=== PATIENT | female | born 1980 | race African-American/Black ===

== ENCOUNTER 2022-07-06 15:23 | Inpatient (IN) | payer BC ==
[2022-07-06 15:48] VITALS: BMI 17.2
[2022-07-06] MEDS ORDERED: guaiFENesin 600 MG TABLET.ER (FP) PO PRN (16:57)
[2022-07-06] MEDS ORDERED: BENZOCAINE/MENTHOL (CHLORASEPTIC ) LOZENGE MM PRN (16:57)
[2022-07-06] MEDS ORDERED: POLYETHYLENE GLYCOL (HEALTHYLAX) 3350 17 GM PACKET PO PRN (16:57)
[2022-07-06] MEDS ORDERED: NICOTINE 10 MG CARTRIDGE (INHALER) IH PRN (16:57)
[2022-07-06] MEDS ORDERED: hydrOXYzine PAMOATE 25 MG CAPSULE (FP) PO PRN (16:57)
[2022-07-06] MEDS ORDERED: ONDANSETRON *ODT* 4 MG TABLET SL PRN (16:57)
[2022-07-06] MEDS ORDERED: BENZONATATE 200 MG CAPSULE PO PRN (16:57)
[2022-07-06] MEDS ORDERED: BISMUTH SUBSALICYLATE 524 MG/30 ML PO PRN (16:57)
[2022-07-06] MEDS ORDERED: MAGNESIUM HYDROX 2400MG/30ML ORAL SUSPENSION 30 ML CUP PO PRN (16:57)
[2022-07-06] MEDS ORDERED: IBUPROFEN 600 MG TABLET (FP) PO PRN (16:57)
[2022-07-06] MEDS ORDERED: LOPERAMIDE HCL 2 MG CAPSULE PO PRN (16:57)
[2022-07-06] MEDS ORDERED: DICYCLOMINE HCL 10 MG CAPSULE PO PRN (16:57)
[2022-07-06] MEDS ORDERED: NALOXONE HCL (KLOXXADO) 8 MG SPRAY NS PRN (16:57)
[2022-07-06] MEDS ORDERED: MAG HYDROX/AL HYDROX/SIMETH 30 ML UNIT-DOSE CUP PO PRN (16:57)
[2022-07-06] MEDS ORDERED: NALOXONE HCL 0.4 MG/ML VIAL IM PRN (16:57)
[2022-07-06] MEDS ORDERED: IBUPROFEN 400 MG TABLET (FP) PO PRN (16:57)
[2022-07-06] MEDS ORDERED: METHOCARBAMOL 500 MG TABLET PO PRN (16:57)
[2022-07-06] MEDS ORDERED: ACETAMINOPHEN 325 MG TABLET (FP) PO PRN (16:57)
[2022-07-06] MEDS: THIAMINE HCL 100 MG TABLET (FP) PO SCH (23:03)
[2022-07-06] MEDS: MELATONIN 5 MG TABLETS PO SCH (23:03)
[2022-07-07] MEDS: PRENATAL VITAMINS W/ FOLIC ACID TABLET (FP) PO SCH (10:33)
[2022-07-07] MEDS: OLANZapine 5 MG TABLET PO SCH ×2 (10:33→22:43)
[2022-07-07 11:36] LABS: MCH 29.7 pg (25.7-33.7); MCHC 33.4 g/dl (32.0-36.0); MEAN CELL VOLUME 88.8 fl (80-96); PLATELET COUNT 312 10^3/uL (134-434); RBC 4.05 M/mm3 (3.60-5.2); RDW 17.8 % (11.6-15.6)
[2022-07-07 11:49] LABS: BLOOD UREA NITROGEN 14.1 mg/dL (7-18)
[2022-07-07 11:50] LABS: CREATININE 0.9 mg/dL (0.55-1.3)
[2022-07-07 11:51] LABS: BILIRUBIN,TOTAL 0.2 mg/dL (0.2-1); CALCIUM 9.1 mg/dL (8.5-10.1); TOT PROT 6.2 g/dl (6.4-8.2)
[2022-07-07] MEDS: THIAMINE HCL 100 MG TABLET (FP) PO SCH (22:43)
[2022-07-07] MEDS: MELATONIN 5 MG TABLETS PO SCH (22:43)
[2022-07-08] MEDS: OLANZapine 5 MG TABLET PO SCH ×2 (10:03→22:21)
[2022-07-08] MEDS: PRENATAL VITAMINS W/ FOLIC ACID TABLET (FP) PO SCH (10:03)
[2022-07-08] MEDS ORDERED: TRIMETHOBENZAMIDE HCL 200MG/2ML INJ IM ONE (11:00)
[2022-07-08] MEDS: LORazepam 1 MG TABLET PO SCH ×3 (11:04→22:22)
[2022-07-08] MEDS: DOXYCYCLINE HYCLATE 100 MG CAPSULE PO SCH (18:21)
[2022-07-08] MEDS: THIAMINE HCL 100 MG TABLET (FP) PO SCH (22:21)
[2022-07-08] MEDS: MELATONIN 5 MG TABLETS PO SCH (22:21)
[2022-07-08 23:51] LABS: EPI CELLS >36 /uL (0-25.1); HYALINE CASTS 32 /uL (0-3.1); PH,URINE 5.5 (5.0-8.0); URINE APPEARANCE TURBID; URINE BACTERIA >9,000 /uL (0-1359); URINE BILIRUBIN NEGATIVE (NEGATIVE); URINE COLOR DK YELLOW; URINE GLUCOSE (UA) NEGATIVE (NEGATIVE); URINE KETONE NEGATIVE (NEGATIVE); URINE LEUK ESTERASE 1+ (NEGATIVE); URINE NITRITE POSITIVE (NEGATIVE); URINE PROTEIN TRACE (NEGATIVE); URINE UROBILINOGEN 0.2 mg/dL (0.2-1.0); URINE WBC 453 /uL (0-25.8)
[2022-07-09] MEDS: LORazepam 1 MG TABLET PO SCH (05:52)
[2022-07-09 08:55] VITALS: BP 123/79; PULSE 92; RESP 18; TEMP 97.7
[2022-07-09] MEDS: PRENATAL VITAMINS W/ FOLIC ACID TABLET (FP) PO SCH (09:41)
[2022-07-09] MEDS: DOXYCYCLINE HYCLATE 100 MG CAPSULE PO SCH (09:41)
[2022-07-09] MEDS: OLANZapine 5 MG TABLET PO SCH (09:41)
[2022-07-09 11:07] LABS: URINE CRYSTALS NONE SEEN /hpf; URINE RBC 30.6 /uL (0-23.9)
[2022-07-10] MEDS ORDERED: LORazepam 1 MG TABLET PO SCH (05:00)
[2022-07-11] MEDS ORDERED: LORazepam 0.5 MG TABLET PO PRN
[2022-07-11] MEDS ORDERED: LORazepam 0.5 MG TABLET PO ONE (05:00)
== END 2022-07-09 09:52 | disposition left against medical advice (07) | DRG 770 ==
LOC: YASAS 15:23 → UNDOADMIN 17:32 → Y3N 17:32
PROVIDERS: ADMIT Allergy & Immunology; ATTEND Surgery
PROC: HZ2ZZZZ Detoxification Services for Substance Abuse Treatment (ICD-10-PCS; principal; 2022-07-06)
DX: F10.230 Alcohol dependence with withdrawal, uncomplicated (principal); F14.20 Cocaine dependence, uncomplicated; F17.210 Nicotine dependence, cigarettes, uncomplicated; F31.9 Bipolar disorder, unspecified; I10 Essential (primary) hypertension; J40 Bronchitis, not specified as acute or chronic; N39.0 Urinary tract infection, site not specified; Z87.09 Personal history of other diseases of the respiratory system; Z88.0 Allergy status to penicillin; Z91.012 Allergy to eggs
CPT/HCPCS: 36415; 80053; 81003; 81025; 85027; 86780; C9803-CS; Q0162; U0003; U0005

== ENCOUNTER 2024-05-30 14:07 | Inpatient (IN) | payer BC ==
[2024-05-30 15:39] VITALS: BMI 15.7
[2024-05-30] MEDS ORDERED: ONDANSETRON *ODT* 4 MG TABLET SL PRN (16:42)
[2024-05-30] MEDS ORDERED: IBUPROFEN 400 MG TABLET (FP) PO PRN (16:42)
[2024-05-30] MEDS ORDERED: POLYETHYLENE GLYCOL (HEALTHYLAX) 3350 17 GM PACKET PO PRN (16:42)
[2024-05-30] MEDS ORDERED: NALOXONE (NARCAN) HCL 4 MG/0.1 ML SPRAY NS PRN (16:42)
[2024-05-30] MEDS ORDERED: chlordiazePOXIDE HCL 25 MG CAPSULE PO PRN (16:42)
[2024-05-30] MEDS ORDERED: MAG HYDROX/AL HYDROX/SIMETH 30 ML UNIT-DOSE CUP PO PRN (16:42)
[2024-05-30] MEDS ORDERED: MAGNESIUM HYDROX 2400MG/30ML ORAL SUSPENSION 30 ML CUP PO PRN (16:42)
[2024-05-30] MEDS ORDERED: LOPERAMIDE HCL 2 MG CAPSULE PO PRN (16:42)
[2024-05-30] MEDS ORDERED: IBUPROFEN 600 MG TABLET (FP) PO PRN (16:42)
[2024-05-30] MEDS ORDERED: BISMUTH SUBSALICYLATE 524 MG/30 ML PO PRN (16:42)
[2024-05-30] MEDS ORDERED: guaiFENesin 600 MG TABLET.ER (FP) PO PRN (16:42)
[2024-05-30] MEDS ORDERED: BENZOCAINE/MENTHOL (CHLORASEPTIC ) LOZENGE MM PRN (16:42)
[2024-05-30] MEDS ORDERED: DICYCLOMINE HCL 10 MG CAPSULE PO PRN (16:42)
[2024-05-30] MEDS ORDERED: ACETAMINOPHEN 325 MG TABLET (FP) PO PRN (16:42)
[2024-05-30] MEDS ORDERED: BENZONATATE 200 MG CAPSULE PO PRN (16:42)
[2024-05-30] MEDS ORDERED: ALBUTEROL SO4 HFA INHALER IH PRN (19:55)
[2024-05-30] MEDS ORDERED: chlordiazePOXIDE HCL 25 MG CAPSULE ONE (22:27)
[2024-05-30] MEDS ORDERED: MELATONIN 5 MG TABLETS ONE (22:27)
[2024-05-30] MEDS: THIAMINE 100 MG TABLET PO SCH (22:28)
[2024-05-30] MEDS: MELATONIN 5 MG TABLETS PO SCH (22:29)
[2024-05-30] MEDS: chlordiazePOXIDE HCL 25 MG CAPSULE PO SCH (22:29)
[2024-05-31] MEDS ORDERED: chlordiazePOXIDE HCL 25 MG CAPSULE ONE ×2 (05:16→09:55)
[2024-05-31] MEDS ORDERED: PRENATAL VITAMINS W/ FOLIC ACID TABLET (FP) PO ONE (09:55)
[2024-05-31] MEDS ORDERED: amLODIPine BESYLATE 5 MG TABLET (FP) ONE (09:55)
[2024-05-31] MEDS: PRENATAL VITAMINS W/ FOLIC ACID TABLET (FP) PO SCH (09:56)
[2024-05-31] MEDS: amLODIPine BESYLATE 5 MG TABLET (FP) PO SCH (09:56)
[2024-05-31 11:26] LABS: CHLORIDE 107 mmol/L (98-107); HEMATOCRIT 37.3 % (32.4-45.2); HEMOGLOBIN 12.5 GM/dL (10.7-15.3); MCHC 33.5 g/dl (32.0-36.0); MEAN CELL VOLUME 92.6 fl (80-96); MEAN PLT VOLUME 8.6 fl (7.5-11.1); PLATELET COUNT 286 10^3/uL (134-434); POTASSIUM 4.1 mmol/L (3.5-5.1); RBC 4.02 M/mm3 (3.60-5.2); RDW 14.2 % (11.6-15.6); SODIUM 140 mmol/L (136-145); WHITE BLOOD COUNT 5.9 K/mm3 (4.0-10.0)
[2024-05-31 11:31] LABS: CALCIUM 9.1 mg/dL (8.5-10.1)
[2024-05-31 11:32] LABS: ALBUMIN 3.1 g/dl (3.4-5.0); ANION GAP 1 mmol/L (4-13); BLOOD UREA NITROGEN 12.2 mg/dL (7-18); CO2 32 mmol/L (21-32); GLUCOSE,RANDOM 111 mg/dL (74-106)
[2024-05-31 11:35] LABS: BILIRUBIN,TOTAL 0.3 mg/dL (0.2-1); CREATININE 0.9 mg/dL (0.55-1.3); SGOT/AST 34 U/L (15-37); SGPT/ALT 53 U/L (13-61)
[2024-05-31 11:37] LABS: ALK PHOS 50 U/L (45-117)
[2024-05-31] MEDS: METHOCARBAMOL 500 MG TABLET PO PRN (22:52)
[2024-06-01] MEDS: chlordiazePOXIDE HCL 25 MG CAPSULE PO SCH (05:49)
[2024-06-02] MEDS ORDERED: chlordiazePOXIDE HCL 10 MG CAPSULE PO PRN
[2024-06-02] MEDS: chlordiazePOXIDE HCL 10 MG CAPSULE PO SCH (05:48)
[2024-06-02 09:23] VITALS: RESP 16
[2024-06-02] MEDS: hydrOXYzine PAMOATE 25 MG CAPSULE (FP) PO PRN (10:30)
[2024-06-02 17:14] VITALS: BP 103/56; PULSE 70; TEMP 97.6
[2024-06-03] MEDS ORDERED: chlordiazePOXIDE HCL 10 MG CAPSULE PO SCH (05:00)
[2024-06-04] MEDS ORDERED: chlordiazePOXIDE HCL 10 MG CAPSULE PO ONE (05:00)
== END 2024-06-02 17:39 | disposition home or self-care (01) | DRG 774 ==
LOC: YASAS 14:07 → Y6N 05-31 11:28
PROVIDERS: ADMIT Allergy & Immunology; ATTEND Allergy & Immunology
PROC: HZ2ZZZZ Detoxification Services for Substance Abuse Treatment (ICD-10-PCS; principal; 2024-05-31)
DX: F10.230 Alcohol dependence with withdrawal, uncomplicated (principal); F14.20 Cocaine dependence, uncomplicated; F12.20 Cannabis dependence, uncomplicated; F17.210 Nicotine dependence, cigarettes, uncomplicated; F31.9 Bipolar disorder, unspecified; I10 Essential (primary) hypertension; J45.909 Unspecified asthma, uncomplicated; R63.4 Abnormal weight loss; Z68.1 Body mass index [BMI] 19.9 or less, adult; Z88.0 Allergy status to penicillin; Z59.00 Homelessness unspecified
CPT/HCPCS: 36415; 80053; 80305; 80307; 81025; 85027; 86780; 93005; 93010